=== PATIENT | female | born 1975 | race American Indian/Alaskan Native ===

== ENCOUNTER 2016-08-21 13:37 | Emergency (ER) | payer MEDICAID, OTHER ==
[2016-08-21 14:05] VITALS: BP 127/79
[2016-08-21] MEDS ORDERED: Cyclobenzaprine 10 MG Tab PO ONE (14:19)
[2016-08-21] MEDS ORDERED: Ketorolac 60 MG/2 ML SDV IM ONE (14:20)
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
[2016-08-21] MEDS ORDERED: diphenhydrAMINE 25 MG Cap PO ONE (14:36)
== END 2016-08-21 14:52 | disposition home or self-care (01) ==
LOC: JP.ED 13:37
DX: M62.838 Other muscle spasm (principal); J45.909 Unspecified asthma, uncomplicated; F41.9 Anxiety disorder, unspecified; F32.9 Major depressive disorder, single episode, unspecified; E66.9 Obesity, unspecified; M19.90 Unspecified osteoarthritis, unspecified site; D64.9 Anemia, unspecified; Z79.84 Long term (current) use of oral hypoglycemic drugs; Z79.899 Other long term (current) drug therapy; Z98.890 Other specified postprocedural states; Z90.49 Acquired absence of other specified parts of digestive tract; Z98.84 Bariatric surgery status; Z90.710 Acquired absence of both cervix and uterus; Z88.8 Allergy status to other drugs, medicaments and biological substances
CPT/HCPCS: 96372; 99283; A9270; J1885

== ENCOUNTER 2016-09-25 23:29 | Emergency (ER) | payer MEDICAID, OTHER ==
[2016-09-25 23:41] VITALS: BP 127/79
--- NOTE | 2016-09-26 00:04 | EDM.PDOC ---
ED HPI GENERAL MEDICAL PROBLEM - General Chief Complaint: General Stated Complaint: TROUBLE BREATHING Time Seen by Provider: 09/25/16 23:31 Source of Information: Reports: Patient History Limitations: Reports: No Limitations - History of Present Illness INITIAL COMMENTS - FREE TEXT/NARRATIVE: Panic attack; this is a 40 year old female present to ER for evaluation. She reports she is experiencing a panic attack all day long. This evening a friend gave her a serquel pill, she called in [place], took half a tab at 9pm and took two 0.5mg tablets of Klonpin at 6 pm. She here requesting medication for panic attack. Onset: Today Duration: Constant Quality: Reports: Same as Previous Episode Severity: Mild Improves with: Reports: None Worsens with: Reports: None Associated Symptoms: Reports: No Other Symptoms Treatments NEUROSURGICAL NURSE PRACTITIONER: Reports: Other (see below) (took another person's medications at 6pm and 9pm.) - Related Data Allergies Allergy/AdvReac Type Severity Reaction Status Date / Time droperidol Allergy Hives Verified 08/21/16 13:54 sertraline Allergy Difficulty Verified 08/21/16 13:54 Breathing trazodone Allergy Respiratory Verified 08/21/16 13:54 Depression metoclopramide HCl AdvReac Agitation Verified 08/22/16 08:00 [From Reglan] sumatriptan [From Imitrex] AdvReac Other Verified 08/21/16 13:54 sumatriptan succinate AdvReac Other Verified 08/21/16 13:54 [From Imitrex] *anxiety medication, unknown Allergy Arrhythmias Uncoded 08/21/16 13:54 Home Meds: Home Meds Cyanocobalamin (Vitamin B-12) [Cyanocobalamin Injection] 1,000 mcg SQ Q28D 12/18 [History] Ferrous Gluconate 324 mg PO QAM 12/18/13 [History] Fluticasone Propionate [Flonase] 1 spray MIRELLA DAILY PRN 12/18/13 [History] Gabapentin [Neurontin] 600 mg PO TID 12/18/13 [History] Loratadine [Claritin] 10 mg PO DAILY 12/18/13 [History] Montelukast [Singulair] 10 mg PO QAM 12/18/13 [History] Naproxen 500 mg PO BID PRN 12/18/13 [History] metFORMIN HCl [Metformin HCl] 2,000 mg PO QAM 12/18/13 [History] DULoxetine [Cymbalta] 60 mg PO DAILY 07/08/14 [History] tiZANidine [Zanaflex] 4 mg PO ASDIRECTED PRN 11/22/14 [History] Diclofenac Potassium [Cataflam] 50 mg PO BID PRN 11/21/15 [History] Ibuprofen [IMW: Ibuprofen] 800 mg PO ASDIRECTED PRN 11/21/15 [History] Magnesium Oxide [Magnesium] 1 tab PO QAM 11/21/15 [History] Past Medical History Respiratory History: Reports: Asthma 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: Polycystic Ovaries, Musculoskeletal History: Reports: Osteoarthritis Neurological History: Reports: Brain Injury, Migraines Psychiatric History: Reports: Anxiety, Depression, PTSD, Other (See Below) Other Psychiatric History: cutting Endocrine/Metabolic History: Reports: Obesity/BMI 30+ Hematologic History: Reports: Anemia, B12 Deficiency, Iron Deficiency - Past Surgical History GI Surgical History: Reports: Bariatric Procedure, Cholecystectomy Musculoskeletal Surgical History: Reports: Arthroscopic Knee, Knee Replacement Social & Family History - Tobacco Use Smoking Status *Q: Never Smoker Years of Tobacco use: 20 Packs/Tins Daily: 0.5 Used Tobacco, but Quit: No Month Tobacco Last Used: 12 Second Hand Smoke Exposure: No - Caffeine Use Caffeine Use: Reports: Coffee, Soda, Tea - Alcohol Use Days Per Week of Alcohol Use: 0 - Recreational Drug Use Recreational Drug Use: No - Living Situation & Occupation Living situation: Reports: Single Occupation: Unemployed ED ROS GENERAL - Review of Systems Review Of Systems: See Below Constitutional: Reports: Other (stress) HEENT: Reports: No Symptoms Respiratory: Reports: No Symptoms Cardiovascular: Reports: No Symptoms Endocrine: Reports: No Symptoms GI/Abdominal: Reports: No Symptoms : Reports: No Symptoms Musculoskeletal: Reports: Other (chronic pain) Skin: Reports: No Symptoms Neurological: Reports: No Symptoms Psychiatric: Reports: No Symptoms Hematologic/Lymphatic: Reports: No Symptoms Immunologic: Reports: No Symptoms ED EXAM, GENERAL - Physical Exam Exam: See Below Exam Limited By: Other (patient appears sleepy.) General Appearance: No Apparent Distress Eye Exam: Bilateral Eye: Normal Inspection Ears: Normal External Exam, Normal Canal, Hearing Grossly Normal, Normal TMs Ear Exam: Bilateral Ear: Auricle Normal, Canal Normal, TM normal Nose: Normal Inspection, Normal Mucosa, No Blood Throat/Mouth: Normal Inspection, Normal Lips, Normal Teeth, Normal Gums, Normal Oropharynx, Normal Voice, No Airway Compromise Head: Atraumatic, Normocephalic Neck: Normal Inspection, Supple, Non-Tender, Full Range of Motion Respiratory/Chest: Lungs Clear, Normal Breath Sounds, No Accessory Muscle Use, Chest Non-Tender Cardiovascular: Regular Rate, Rhythm, No Edema GI/Abdominal: Normal Bowel Sounds Extremities: Normal Inspection, Normal Range of Motion, Non-Tender, Normal Capillary Refill, No Pedal Edema Neurological: Alert, Oriented, CN II-XII Intact, Normal Cognition, Normal Gait, Normal Reflexes, No Motor/Sensory Deficits Psychiatric: Normal Affect, Normal Mood Skin Exam: Warm, Dry, Intact, Normal Color, No Rash Lymphatic: No Adenopathy Course - Vital Signs Last Recorded V/S: Last Vital Signs Temp 36.4 C 09/26/16 00:11 Pulse 96 09/26/16 00:11 Resp 18 09/26/16 00:11 BP 127/79 09/26/16 00:11 Pulse Ox 96 09/26/16 00:11 - Re-Assessments/Exams Free Text/Narrative Re-Assessment/Exam: 09/26/16 00:30 monitored patient for 1 hour, during that time, she was sleeping. does not appear to be in any distress. will discharge to home. advise her adult daughter that she is safe to go home, do not let her take any more medication til the morning. Departure - Departure Time of Disposition: 00:32 Disposition: Home, Self-Care 01 Condition: good Clinical Impression: Misuse of drugs, Stress at home - Discharge Information Referrals: Delisa Robertson I LEAD JANITOR [Primary Care Provider] - Forms: ED Department Discharge Care Plan Goals: misuse of drugs -taking over people medications -advise to take only medication prescribed for you. Stress at home -advised to follow up with Primary Care Provider for recheck. Return to Clinic or ER as needed. - Problem List & Annotations (1) Misuse of drugs SNOMED Code(s): 775931081 Code(s): F19.99 - OTH PSYCHOACTIVE SUBSTANCE USE, UNSP W UNSP DISORDER Status: Acute Priority: High Current Visit: Yes (2) Stress at home SNOMED Code(s): 050392635 Code(s): F43.9 - REACTION TO SEVERE STRESS, UNSPECIFIED Status: Acute Priority: High Current Visit: Yes - Problem List Review Problem List Initiated/Reviewed/Updated: Yes - Assessment/Plan Plan: misuse of drugs -taking over people medications -advise to take only medication prescribed for you. Stress at home -advised to follow up with Primary Care Provider for recheck. Return to Clinic or ER as needed.
== END 2016-09-26 00:50 | disposition home or self-care (01) ==
LOC: JP.ED 23:29
DX: F19.99 Other psychoactive substance use, unspecified with unspecified psychoactive substance-induced disorder (principal); F43.9 Reaction to severe stress, unspecified; J45.909 Unspecified asthma, uncomplicated; F41.9 Anxiety disorder, unspecified; F32.9 Major depressive disorder, single episode, unspecified; E66.9 Obesity, unspecified; Z68.37 Body mass index [BMI] 37.0-37.9, adult; Z98.49 Cataract extraction status, unspecified eye; Z90.49 Acquired absence of other specified parts of digestive tract; Z96.659 Presence of unspecified artificial knee joint; Z98.890 Other specified postprocedural states; Z79.899 Other long term (current) drug therapy; Z88.8 Allergy status to other drugs, medicaments and biological substances
CPT/HCPCS: 99282; 99285

== ENCOUNTER 2022-12-08 05:40 | Inpatient (IN) | payer MEDICAID, SELFPAY ==
[2022-12-08 06:23] LABS: HEMOGLOBIN A1C 8.2 % (4.5-6.2)
[2022-12-08] MEDS ORDERED: Scopolamine 1.5 MG Transdermal Patch TOP SCH (06:30)
[2022-12-08] MEDS ORDERED: Dextrose 5%-Lactated Ringers 1,000 ML IV SCH (06:30)
[2022-12-08] MEDS ORDERED: Albuterol/Ipratropium 3.0-0.5 MG/3 ML Neb Soln NEB ONE (06:30)
[2022-12-08] MEDS ORDERED: Lidocaine 1% with EPINEPHrine 1:100,000 50 ML MDV ONE (06:40)
[2022-12-08] MEDS ORDERED: Bupivacaine 0.5% 50 ML MDV ONE (06:40)
[2022-12-08] MEDS ORDERED: Dexamethasone 4 MG/ML SDV ONE (06:59)
[2022-12-08] MEDS ORDERED: fentaNYL 250 MCG/5 ML SDV ONE ×2 (06:59→08:43)
[2022-12-08] MEDS ORDERED: Succinylcholine 200 MG/10 ML MDV ONE (06:59)
[2022-12-08] MEDS ORDERED: Ondansetron 4 MG/2 ML SDV ONE (06:59)
[2022-12-08] MEDS ORDERED: Neostigmine Methylsulfate 1 MG/ML 5 ML Syringe ONE (06:59)
[2022-12-08] MEDS ORDERED: Glycopyrrolate 0.2 MG/ML 5 ML MDV ONE (06:59)
[2022-12-08] MEDS ORDERED: Propofol 200 MG/20 ML SDV ONE (06:59)
[2022-12-08] MEDS ORDERED: Rocuronium 50 MG/5 ML Vial ONE ×2 (06:59→08:23)
[2022-12-08] MEDS ORDERED: ceFAZolin 2 GM in Premix Bag 1 BAG IV ONE (07:00)
[2022-12-08] MEDS ORDERED: Naloxone 0.4 MG/ML SDV IVPUSH PRN (07:20)
[2022-12-08] MEDS ORDERED: diphenhydrAMINE 25 MG Cap PO PRN (07:20)
[2022-12-08] MEDS ORDERED: diphenhydrAMINE 50 MG/ML SDV IVPUSH PRN ×2 (07:20→12:00)
[2022-12-08] MEDS ORDERED: Ondansetron 4 MG/2 ML SDV IVPUSH PRN ×2 (07:20→12:00)
[2022-12-08] MEDS ORDERED: Ketamine 500 MG/5 ML MDV IV SCH (07:30)
[2022-12-08] MEDS ORDERED: Ketamine 19 MG in Sodium Chloride 0.9% 19.81 ML IV SCH (07:30)
[2022-12-08] MEDS: HYDROmorphone/Normal Saline 6 MG/30 ML PCA Vial IV PRN ×2 (07:37→15:22)
[2022-12-08] MEDS: Meropenem 500 MG SDV ONE ×2 (07:37→08:16)
[2022-12-08] MEDS ORDERED: Naloxone 0.4 MG/ML SDV IV PRN (08:00)
[2022-12-08] MEDS ORDERED: Linezolid 600 MG/300 ML Premix Bag IRR ONE (08:16)
[2022-12-08] MEDS ORDERED: Lactated Ringers 1,000 ML ONE (09:25)
[2022-12-08] MEDS ORDERED: Albuterol/Ipratropium 3.0-0.5 MG/3 ML Neb Soln INH PRN (12:00)
[2022-12-08] MEDS ORDERED: Acetaminophen 500 MG Tab PO PRN (12:00)
[2022-12-08] MEDS ORDERED: Metoclopramide 10 MG/2 ML SDV IVPUSH PRN (12:00)
[2022-12-08] MEDS ORDERED: Labetalol 20 MG/4 ML Syringe IVPUSH PRN (12:00)
[2022-12-08] MEDS: cefOXitin 2 GM in Sodium Chloride 0.9% 50 ML IV SCH ×2 (13:44→19:14)
[2022-12-08] MEDS ORDERED: Pantoprazole 40 MG Vial IVPUSH SCH (14:00)
[2022-12-08] MEDS: Albuterol/Ipratropium 3.0-0.5 MG/3 ML Neb Soln INH SCH ×2 (14:41→21:04)
[2022-12-08] MEDS: MVI, Adult with Vitamin K 10 ML, Zinc/Copper/Manganese/Selenium 1 ML, Thiamine 200 MG i... IV SCH ×8 (14:56→15:05)
[2022-12-08] MEDS: Sodium Ferric Gluconate Cmplex 250 MG in Sodium Chloride 0.9% 100 ML IV SCH (14:56)
[2022-12-08] MEDS: hydrOXYzine HCL 100 MG/2 ML SDV IM PRN (15:27)
[2022-12-08] MEDS: Insulin Lispro 100 Unit/ML 3 ML KwikPen SUBCUT SCH ×2 (16:46→21:34)
[2022-12-08] MEDS: Heparin Sodium 5,000 Units/ML Vial SUBCUT SCH (19:16)
[2022-12-08] MEDS: Gabapentin 300 MG Cap PO SCH (21:32)
[2022-12-08] MEDS: Mirtazapine 15 MG Tab PO SCH (21:32)
[2022-12-08] MEDS: Acetaminophen 500 MG Tab PO SCH (21:33)
[2022-12-08] MEDS: Lactated Ringers 1,000 ML IV SCH (22:15)
[2022-12-09] MEDS: cefOXitin 2 GM in Sodium Chloride 0.9% 50 ML IV SCH ×4 (01:36→20:15)
[2022-12-09] MEDS ORDERED: Iopamidol 612 MG/ML 50 ML SDV PO ONE (03:56)
[2022-12-09] MEDS ORDERED: methylPREDNISolone Sodium Succinate 125 MG/2 ML SDV IV ONE (04:00)
[2022-12-09] MEDS: Insulin Lispro 100 Unit/ML 3 ML KwikPen SUBCUT SCH ×4 (04:24→21:51)
[2022-12-09] MEDS: hydrOXYzine HCL 100 MG/2 ML SDV IM PRN ×2 (04:47→04:50)
[2022-12-09] MEDS: HYDROmorphone/Normal Saline 6 MG/30 ML PCA Vial IV PRN ×2 (05:37→15:40)
[2022-12-09] MEDS: Acetaminophen 500 MG Tab PO SCH ×3 (05:38→21:52)
[2022-12-09] MEDS: Lactated Ringers 1,000 ML IV SCH (05:38)
[2022-12-09] MEDS: Albuterol/Ipratropium 3.0-0.5 MG/3 ML Neb Soln INH SCH ×4 (07:00→21:52)
[2022-12-09] MEDS ORDERED: Ondansetron 4 MG Tab.DIS PO PRN (07:57)
[2022-12-09] MEDS: Heparin Sodium 5,000 Units/ML Vial SUBCUT SCH ×2 (08:32→20:15)
[2022-12-09] MEDS: cloNIDine 0.1 MG Tab PO SCH (08:33)
[2022-12-09] MEDS: Celecoxib 200 MG Cap PO SCH ×2 (08:35→20:15)
[2022-12-09] MEDS: Losartan 50 MG Tab PO SCH (08:35)
[2022-12-09] MEDS: SCOPOLAMINE PATCH CHECK TOP SCH (08:36)
[2022-12-09] MEDS: FLUoxetine 10 MG Cap PO SCH (08:36)
[2022-12-09] MEDS: Gabapentin 300 MG Cap PO SCH ×3 (08:36→20:15)
[2022-12-09] MEDS: Pantoprazole 40 MG Tab.CR PO SCH (12:40)
[2022-12-09] MEDS: Sodium Ferric Gluconate Cmplex 250 MG in Sodium Chloride 0.9% 100 ML IV SCH (15:11)
[2022-12-09] MEDS ORDERED: MVI, Adult with Vitamin K 10 ML, Zinc/Copper/Manganese/Selenium 1 ML, Thiamine 200 MG i... IV SCH ×4 (18:30)
[2022-12-09] MEDS: Mirtazapine 15 MG Tab PO SCH (20:15)
[2022-12-10] MEDS: Insulin Lispro 100 Unit/ML 3 ML KwikPen SUBCUT SCH ×4 (04:19→21:50)
[2022-12-10] MEDS: Lactated Ringers 1,000 ML IV SCH ×2 (04:35→15:30)
[2022-12-10] MEDS: Acetaminophen 500 MG Tab PO SCH ×3 (06:07→21:50)
[2022-12-10] MEDS: Albuterol/Ipratropium 3.0-0.5 MG/3 ML Neb Soln INH SCH ×4 (07:01→21:50)
[2022-12-10] MEDS: Gabapentin 300 MG Cap PO SCH ×3 (08:04→20:30)
[2022-12-10] MEDS: Celecoxib 200 MG Cap PO SCH ×2 (08:04→20:31)
[2022-12-10] MEDS: FLUoxetine 10 MG Cap PO SCH (08:05)
[2022-12-10] MEDS: SCOPOLAMINE PATCH CHECK TOP SCH (08:05)
[2022-12-10] MEDS: Pantoprazole 40 MG Tab.CR PO SCH (08:06)
[2022-12-10] MEDS: Losartan 50 MG Tab PO SCH (08:06)
[2022-12-10] MEDS: cloNIDine 0.1 MG Tab PO SCH (08:06)
[2022-12-10] MEDS: Heparin Sodium 5,000 Units/ML Vial SUBCUT SCH ×2 (08:07→20:31)
[2022-12-10] MEDS ORDERED: Cyanocobalamin (Vitamin B12) 1,000 MCG/ML SDV IM ONE (09:00)
[2022-12-10] MEDS: Docusate Sodium 100 MG Cap PO SCH ×2 (10:01→20:31)
[2022-12-10] MEDS: Bisacodyl 5 MG Tab PO SCH ×2 (10:02→20:31)
[2022-12-10] MEDS: HYDROmorphone/Normal Saline 6 MG/30 ML PCA Vial IV PRN (11:35)
[2022-12-10] MEDS: Mirtazapine 15 MG Tab PO SCH (20:31)
[2022-12-11] MEDS: Lactated Ringers 1,000 ML IV SCH (01:36)
[2022-12-11] MEDS: Insulin Lispro 100 Unit/ML 3 ML KwikPen SUBCUT SCH ×4 (04:57→21:11)
[2022-12-11] MEDS: Acetaminophen 500 MG Tab PO SCH ×3 (05:54→22:23)
[2022-12-11] MEDS: Albuterol/Ipratropium 3.0-0.5 MG/3 ML Neb Soln INH SCH ×4 (06:58→21:00)
[2022-12-11] MEDS: cloNIDine 0.1 MG Tab PO SCH (08:00)
[2022-12-11] MEDS: FLUoxetine 10 MG Cap PO SCH (08:00)
[2022-12-11] MEDS: Celecoxib 200 MG Cap PO SCH ×2 (08:00→21:00)
[2022-12-11] MEDS: Gabapentin 300 MG Cap PO SCH ×3 (08:00→21:00)
[2022-12-11] MEDS: Bisacodyl 5 MG Tab PO SCH ×2 (08:00→21:00)
[2022-12-11] MEDS: Docusate Sodium 100 MG Cap PO SCH ×2 (08:00→21:00)
[2022-12-11] MEDS: Heparin Sodium 5,000 Units/ML Vial SUBCUT SCH ×2 (08:01→20:59)
[2022-12-11] MEDS: Pantoprazole 40 MG Tab.CR PO SCH (08:01)
[2022-12-11] MEDS: Losartan 50 MG Tab PO SCH (08:01)
[2022-12-11] MEDS ORDERED: Sodium Chloride 0.9% 10 ML Syringe IV PRN (08:12)
[2022-12-11] MEDS: oxyCODONE 5 MG Tab PO PRN ×3 (09:46→22:23)
[2022-12-11] MEDS: Mirtazapine 15 MG Tab PO SCH (21:00)
[2022-12-11] MEDS: Cyclobenzaprine 10 MG Tab PO PRN (22:23)
[2022-12-12] MEDS: Insulin Lispro 100 Unit/ML 3 ML KwikPen SUBCUT SCH ×4 (04:19→21:51)
[2022-12-12] MEDS: oxyCODONE 5 MG Tab PO PRN ×3 (05:20→18:07)
[2022-12-12] MEDS: Acetaminophen 500 MG Tab PO SCH ×3 (05:20→21:39)
[2022-12-12] MEDS: Albuterol/Ipratropium 3.0-0.5 MG/3 ML Neb Soln INH SCH ×4 (07:15→21:42)
[2022-12-12] MEDS: Pantoprazole 40 MG Tab.CR PO SCH (08:37)
[2022-12-12] MEDS: Heparin Sodium 5,000 Units/ML Vial SUBCUT SCH ×2 (08:37→21:38)
[2022-12-12] MEDS: Docusate Sodium 100 MG Cap PO SCH ×2 (08:38→21:39)
[2022-12-12] MEDS: Gabapentin 300 MG Cap PO SCH ×3 (08:38→21:39)
[2022-12-12] MEDS: Bisacodyl 5 MG Tab PO SCH ×2 (08:38→21:38)
[2022-12-12] MEDS: Celecoxib 200 MG Cap PO SCH ×2 (08:38→21:42)
[2022-12-12] MEDS: FLUoxetine 10 MG Cap PO SCH (08:38)
[2022-12-12] MEDS: cloNIDine 0.1 MG Tab PO SCH (08:40)
[2022-12-12] MEDS: Losartan 50 MG Tab PO SCH (08:40)
[2022-12-12] MEDS ORDERED: Polyethylene Glycol 3350 Powder 17 GM Packet PO ONE (09:30)
[2022-12-12] MEDS ORDERED: Polyethylene Glycol 3350 Powder 119 GM Bottle PO ONE (09:30)
[2022-12-12] MEDS: Mirtazapine 15 MG Tab PO SCH (21:38)
[2022-12-12] MEDS: Cyclobenzaprine 10 MG Tab PO PRN (21:45)
[2022-12-13] MEDS: oxyCODONE 5 MG Tab PO PRN ×2 (02:40→08:33)
[2022-12-13] MEDS: Insulin Lispro 100 Unit/ML 3 ML KwikPen SUBCUT SCH ×2 (04:13→10:14)
[2022-12-13 06:27] VITALS: PULSE 75
[2022-12-13] MEDS: Acetaminophen 500 MG Tab PO SCH (06:54)
[2022-12-13] MEDS: Albuterol/Ipratropium 3.0-0.5 MG/3 ML Neb Soln INH SCH ×2 (06:56→10:37)
[2022-12-13] MEDS: Heparin Sodium 5,000 Units/ML Vial SUBCUT SCH (07:18)
[2022-12-13] MEDS: Pantoprazole 40 MG Tab.CR PO SCH (07:18)
[2022-12-13] MEDS: Gabapentin 300 MG Cap PO SCH (08:32)
[2022-12-13] MEDS: Celecoxib 200 MG Cap PO SCH (08:33)
[2022-12-13] MEDS: FLUoxetine 10 MG Cap PO SCH (08:33)
[2022-12-13] MEDS: cloNIDine 0.1 MG Tab PO SCH (08:34)
[2022-12-13] MEDS: Losartan 50 MG Tab PO SCH (08:34)
[2022-12-13] MEDS: Docusate Sodium 100 MG Cap PO SCH (08:39)
[2022-12-13] MEDS: Bisacodyl 5 MG Tab PO SCH (08:39)
[2022-12-13 08:40] VITALS: BP 152/90
[2022-12-13] MEDS ORDERED: Fluconazole 150 MG Tab PO ONE (09:00)
== END 2022-12-13 10:50 | disposition home or self-care (01) | DRG 327 ==
LOC: JP.SDS 05:40 → JP.2SS 10:10
PROVIDERS: ADMIT Surgery; ATTEND Surgery
PROC: 0WUF0JZ Supplement Abdominal Wall with Synthetic Substitute, Open Approach (ICD-10-PCS; principal; 2022-12-08)
PROC: 3E0M05Z Introduction of Adhesion Barrier into Peritoneal Cavity, Open Approach (ICD-10-PCS; 2022-12-08)
PROC: 0DB90ZZ Excision of Duodenum, Open Approach (ICD-10-PCS; 2022-12-08)
PROC: 0DBA0ZZ Excision of Jejunum, Open Approach (ICD-10-PCS; 2022-12-08)
PROC: 0WUF0JZ Supplement Abdominal Wall with Synthetic Substitute, Open Approach (ICD-10-PCS; 2022-12-08)
DX: K43.0 Incisional hernia with obstruction, without gangrene (principal); K56.600 Partial intestinal obstruction, unspecified as to cause; K95.89 Other complications of other bariatric procedure; Q43.0 Meckel's diverticulum (displaced) (hypertrophic); K42.0 Umbilical hernia with obstruction, without gangrene; E11.9 Type 2 diabetes mellitus without complications; G43.909 Migraine, unspecified, not intractable, without status migrainosus; I10 Essential (primary) hypertension; E66.9 Obesity, unspecified; F41.9 Anxiety disorder, unspecified; F32.A Depression, unspecified; G89.29 Other chronic pain; M54.50 Low back pain, unspecified; D51.0 Vitamin B12 deficiency anemia due to intrinsic factor deficiency; Z98.890 Other specified postprocedural states; Z68.36 Body mass index [BMI] 36.0-36.9, adult; Z79.899 Other long term (current) drug therapy
CPT/HCPCS: 36415; 74240; 74240-26; 82728; 82947; 83036; 88302; 88304; 88307; 94640; A9270-GY; C1713; C1781; C9113; J0131; J0171; J0330; J0690; J0694; J1100; J1170; J1644; J1815; J2020; J2185; J2405; J2704; J2710; J2795; J2916; J2930; J3010; J3410; J3411; J3420; J3490; J7120; J7121; J7620; Q9967